=== PATIENT | female | born 1995 | race Caucasian/White ===

== ENCOUNTER → 2017-06-10 | Outpatient (CLI) | payer BC ==
--- NOTE | 2017-06-10 15:07 | EXERCISE STRESS ECHO ---
*NOTICE TO RECEIVING [employer] This information is strictly Confidential and protected under [place] law. [place] law prohibits you from making any further disclosure of this information unless further disclosure is expressly permitted by the written consent of the person to whom it pertains or is authorized by law. A general authorization for the release of medical or other information is not sufficient for this purpose. Hospital accepts no responsibility if the information is made available to any other person, INCLUDING THE PATIENT. Interpretation Summary * Name: SANJAY MCWILLIAMS Study Date: 06/10/2017 11:26 AM BP: 125/59 mmHg * Patient Location: [facility] HR: 89 * : 1995 (M/d/yyyy) Gender: Female * Age: 22 yrs Ethnicity: [place] * Ordering Physician: Diana Lazar * Referring Physician: Diana Lazar * Performed By: iSmi Chang RDCS * * Reason For Study: Near syncope * -- Conclusions -- * Stress Echo: * 1. Negative stress echo for ischemia at 105 % MPHR. * 2. Negative exercise ECG for ischemia at 105 % MPHR. * 3. There was initially normal blood pressure response to exercise. At peak exercise when she developed lightheadedness and bilateral arm numbness, her systolic blood pressure dropped from 152 down to 110-120 mmHg. * 4. No arrhythmia. * 5. Study terminated due to lightheadedness. She also reported bilateral arm numbness. No chest pain reported. * 6. Excellent exercise tolerance. * Echo: * 1. Normal left ventricular size and systolic function. EF 60-65%. No regional wall motion abnormalities. No left ventricular hypertrophy. No significant diastolic dysfunction. * 2. No significant valvular abnormalities. * 3. Normal estimated right ventricular systolic pressure; 19mmHg. * 4. No prior study available for comparison. Procedure Details * ECHOEX, CPT #[id number] * ECHO DOPPLER, CPT #[id number] * ECHO COLOR FLOW, CPT #[id number] Left Ventricle * The left ventricle is normal in size. * There is normal left ventricular wall thickness. * Ejection Fraction = 60-65%. * Left ventricular systolic function is normal. * No regional wall motion abnormalities noted. * The left ventricular ejection fraction increases normally with stress. The left ventricular end-systolic cavity size reduces post-stress (normal response). The left ventricular wall motion with stress is normal. * Resting wall motion: Normal. Stress wall motion: Appropriate increase in Left ventricular systolic function and decrease in cavity size. No stress induced segmental wall motion abnormalities. Right Ventricle * The right ventricle is normal in size and function. * The right ventricular systolic function is normal as assessed by tricuspid annular plane systolic excursion (TAPSE) (normal >1.5 cm). Atria * The left atrial size is normal. * Right atrial size is normal. * There is no evidence of atrial septal defect, but resolution does not allow assessment for a patent foramen ovale. Mitral Valve * The mitral valve leaflets appear normal. There is no evidence of stenosis, fluttering, or prolapse. * There is trace mitral regurgitation. Tricuspid Valve * The tricuspid valve is not well visualized, but is grossly normal. * There is no tricuspid stenosis. * There is trace tricuspid regurgitation. Aortic Valve * The aortic valve is normal in structure and function. * No hemodynamically significant valvular aortic stenosis. * No aortic regurgitation is present. Pulmonic Valve * The pulmonary valve is inadequately visualized, but the Doppler data is adequate for interpretation. * Trace pulmonic valvular regurgitation. Great Vessels * The aortic root is normal size. * Aortic arch of normal dimension. * Ascending aorta of normal dimension * Normal IVC size and inspiratory collapse. Pericardium * There is no pericardial effusion. Stress Parameters * NSR at 86 bpm. * No arrhythmia were noted with stress. * Stress ECG: No ST changes. No arrhythmias. * The stress portion of this study was personally supervised by the undersigned interpreting physician. * Rest heart rate was '89' BPM. * Rest blood pressure was '125/59' * Maximum heart rate achieved was 210 bpm. * Maximum heart rate was 105 % of maximum age-predicted heart rate. * Maximum blood pressure was '152/60' * Total exercise time was '13:43' * Maximum exercise MET level achieved was '16.60' METS * Maximum treadmill speed was '5.00' miles per hour. * Maximum treadmill elevation was '18.00'% grade. * Exercise was terminated due to 'Lightheadedness and fatigue' MMode 2D Measurements and Calculations IVSd 0.60 cm LVIDd 4.0 cm LVIDs 2.7 cm LVPWd 0.73 cm IVS/LVPW 0.82 FS 32.1 % EDV(Teich) 70.3 ml ESV(Teich) 27.6 ml EF(Teich) 60.8 % EDV(cubed) 64.4 ml ESV(cubed) 20.2 ml EF(cubed) 68.6 % LV mass(C)d 73.4 grams SV(Teich) 42.7 ml SV(cubed) 44.2 ml Ao root diam 2.5 cm Ao root area 5.0 cm\S\2 ACS 1.3 cm LA dimension 2.4 cm asc Aorta Diam 1.9 cm LA/Ao 0.95 LVAd ap4 21.5 cm\S\2 LVLd ap4 6.8 cm EDV(MOD-sp4) 59.0 ml EDV(sp4-el) 58.3 ml LVAs ap4 11.9 cm\S\2 LVLs ap4 5.8 cm ESV(MOD-sp4) 21.9 ml ESV(sp4-el) 20.9 ml EF(MOD-sp4) 62.8 % EF(sp4-el) 64.1 % LVAd ap2 20.3 cm\S\2 LVLd ap2 7.7 cm EDV(MOD-sp2) 46.0 ml EDV(sp2-el) 45.3 ml LVAs ap2 11.3 cm\S\2 LVLs ap2 6.2 cm ESV(MOD-sp2) 17.3 ml ESV(sp2-el) 17.6 ml EF(MOD-sp2) 62.3 % EF(sp2-el) 61.3 % LVLd %diff 12.7 % EDV(MOD-bp) 55.5 ml LVLs %diff 6.3 % ESV(MOD-bp) 20.3 ml EF(MOD-bp) 63.5 % SV(MOD-sp4) 37.0 ml SV(MOD-sp2) 28.7 ml SV(MOD-bp) 35.3 ml SV(sp4-el) 37.3 ml SV(sp2-el) 27.8 ml Doppler Measurements and Calculations MV E max gaudencio 110.0 cm/sec MV A max gaudencio 54.5 cm/sec MV E/A 2.0 MV dec time 0.14 sec Ao V2 max 139.8 cm/sec Ao max PG 7.8 mmHg Ao max PG (full) 3.3 mmHg LV V1 max PG 4.5 mmHg LV V1 max 106.1 cm/sec PA V2 max 102.7 cm/sec PA max PG 4.2 mmHg PA acc slope 548.1 cm/sec\S\2 PA acc time 0.16 sec TR max gaudencio 202.0 cm/sec RVSP(TR) 19.3 mmHg RAP systole 3.0 mmHg PA pr(Accel) 8.2 mmHg
== END | disposition home or self-care (01) ==
LOC: C.CPL 11:19
PROVIDERS: ATTEND Physician Assistant
DX: R55 Syncope and collapse (principal); R68.89 Other general symptoms and signs